=== PATIENT | female | born 1965 | race Caucasian/White ===

== ENCOUNTER 2017-04-19 06:51 | Day surgery (SDC) | payer OTHER ==
[~2017-04-19] VITALS: Ht 162.6 cm; Wt 116.4 kg
[~2017-04-19 06:51] MED LIST: IBUP-1222 PO
[2017-04-19 07:13] VITALS: BP 139/88
[2017-04-19] MEDS ORDERED: LACTATED RINGERS 1,000 ML IV SCH (07:15)
[2017-04-19] MEDS ORDERED: LIDOCAINE 1%, 2ML ONE (07:18)
[2017-04-19] MEDS ORDERED: LIDOCAINE 1%, 2ML SQ PRN (07:30)
[2017-04-19] MEDS ORDERED: MIDAZOLAM 1 MG/ML, 2ML ONE (08:47)
[2017-04-19] MEDS ORDERED: METOPROLOL 1 MG/ML, 5ML IV PRN (09:30)
[2017-04-19] MEDS ORDERED: ALBUTEROL SULFATE 2.5 MG/3 ML NPPB PRN (09:30)
[2017-04-19] MEDS ORDERED: HYDROmorphone 1 MG/ML, 1ML IV PRN (09:30)
[2017-04-19] MEDS ORDERED: LABETALOL 5MG/ML, 20ML IV PRN (09:30)
[2017-04-19] MEDS ORDERED: FENTANYL PF 100 MCG/2ML IV PRN (09:30)
[2017-04-19] MEDS ORDERED: ONDANSETRON 2MG/ML, 2ML IVPush PRN (09:30)
[2017-04-19] MEDS ORDERED: METOCLOPRAMIDE 5 MG/ML, 2ML IV PRN (09:30)
[2017-04-19] MEDS ORDERED: hydrALAzine 20 MG/ML, 1ML IV PRN (09:30)
[2017-04-19] MEDS ORDERED: KETOROLAC 30 MG/1 ML IV PRN (09:30)
[2017-04-19] MEDS ORDERED: EPHEDRINE 50 MG/ML, 1ML IVPush PRN (09:30)
[2017-04-19] MEDS ORDERED: ACETAMINOPHEN 325 MG TABLET PO PRN (09:30)
[2017-04-19] MEDS ORDERED: LABETALOL 5MG/ML, 20ML ONE (09:46)
== END 2017-04-19 11:45 | disposition home or self-care (01) ==
LOC: OUT 06:51
PROVIDERS: ATTEND Internal Medicine Gastroenterology
DX: K62.1 Rectal polyp (principal); K57.30 Diverticulosis of large intestine without perforation or abscess without bleeding; Z87.891 Personal history of nicotine dependence; I10 Essential (primary) hypertension; G43.909 Migraine, unspecified, not intractable, without status migrainosus; Z90.710 Acquired absence of both cervix and uterus; Z88.6 Allergy status to analgesic agent; Z88.2 Allergy status to sulfonamides
CPT/HCPCS: 45380; 88305; J2250